=== PATIENT | female | born 1980 | race Two or more races ===

== ENCOUNTER 2021-12-11 04:50 | Day surgery (SDC) | payer OTHER ==
[2021-12-11] MEDS ORDERED: PERCOCET 5-3251 EACH PO (10:34)
== END 2021-12-11 13:55 | disposition home or self-care (01) ==
LOC: CIR.AMB 04:50
PROVIDERS: ATTEND Surgery
DX: K50.913 Crohn's disease, unspecified, with fistula (principal); K62.6 Ulcer of anus and rectum; Z20.822 Contact with and (suspected) exposure to COVID-19; Z88.0 Allergy status to penicillin; M06.9 Rheumatoid arthritis, unspecified

== ENCOUNTER 2024-11-02 05:50 | Day surgery (SDC) | payer OTHER ==
[2024-10-27 12:26] VITALS: BP 126/84
[~2024-11-02] VITALS: Ht 170.2 cm; Wt 69.9 kg
[~2024-11-02 05:50] MED LIST: CALCIUM500 M1 PO; CARAFATE1 GM PO; FOLIC ACID0.8 M1 PO; MEDROL4 MG PO; PERCOCET 5-3251 EACH PO; TREXALL7.5 MG PO; [UNRECOGNIZED DRUG - OTHER]
[2024-11-02] MEDS ORDERED: METRONIDAZOLE/SODIUM CHLORIDE 500 MG/100 ML PIGGYBACK IV ONE (07:19)
[2024-11-02] MEDS ORDERED: DIBUCAINE 30 GM TUBE ONE (07:26)
[2024-11-02] MEDS ORDERED: HEMOSTATIC MATRIX 1 KIT KIT TOP ONE (07:26)
[2024-11-02] MEDS ORDERED: POVIDONE-IODINE 118 ML BOTT TOP ONE (07:28)
[2024-11-02] MEDS ORDERED: levoFLOXacin IN DEXTROSE 5 % 5 MG/ML PIGGYBAG IV ONE (08:30)
[2024-11-02] MEDS ORDERED: TAMSULOSIN HCL 0.4 MG CAP PO ONE ×2 (08:45→09:04)
[2024-11-02] MEDS ORDERED: OXYCODONE HCL5 MG PO (08:48)
== END 2024-11-02 15:30 | disposition home or self-care (01) ==
LOC: CIR.AMB 05:50
PROVIDERS: ATTEND Surgery
DX: K60.322 Anal fistula, complex, persistent (principal); K60.1 Chronic anal fissure; K59.09 Other constipation